=== PATIENT | male | born 1960 | race Caucasian/White ===

== ENCOUNTER → 2018-04-01 | Outpatient (CLI) | payer MEDICARE ==
[~2018-04-01] MED LIST: DULO60CA7 PO; FLOMAX; METO25TA35 PO; NORVAS; NORVASC; OXYC-307 PO; POTA10TA PO; TAMS-11 PO; VALS160T3 PO
== END | disposition home or self-care (01) ==
LOC: CFH 08:01
PROVIDERS: ATTEND Urology
DX: N20.9 Urinary calculus, unspecified (principal); N20.0 Calculus of kidney
CPT/HCPCS: 74176

== ENCOUNTER 2018-04-09 12:34 | Day surgery (SDC) | payer MEDICARE ==
[~2018-04-09] VITALS: Ht 170.2 cm; Wt 88.2 kg
[2018-04-09] MEDS ORDERED: LACTATED RINGERS 1,000 ML IV SCH (13:29)
[2018-04-09 13:53] VITALS: BP 137/80
[2018-04-09] MEDS ORDERED: AMLO10TA4 PO (13:58)
[2018-04-09] MEDS ORDERED: PROPOFOL 50 ML ONE (14:48)
[2018-04-09] MEDS ORDERED: MIDAZOLAM 1 MG/ML, 2ML ONE (14:48)
[2018-04-09] MEDS ORDERED: FENTANYL PF 250 MCG/5ML ONE (14:48)
[2018-04-09] MEDS ORDERED: ONDANSETRON 2MG/ML, 2ML ONE (15:06)
[2018-04-09] MEDS ORDERED: DEXAMETHASONE 4 MG/ML, 1ML ONE (15:06)
[2018-04-09] MEDS ORDERED: KETOROLAC 30 MG/1 ML ONE (15:06)
[2018-04-09] MEDS ORDERED: GLYCOPYRROLATE 0.2MG/1ML, 5ML ONE (15:06)
[2018-04-09] MEDS ORDERED: ROCURONIUM 10 MG/ML,10ML ONE (15:06)
[2018-04-09] MEDS ORDERED: SUCCINYLCHOLINE 20 MG/ML, 10ML ONE (15:06)
[2018-04-09] MEDS ORDERED: CIPROFLOXACIN/PMX 400MG/200ML 200 ML ONE (15:25)
[2018-04-09] MEDS ORDERED: PROMETHAZINE 25 MG SUPP PR PRN (16:00)
[2018-04-09] MEDS ORDERED: PROMETHAZINE 12.5 MG SUPP PR PRN (16:00)
[2018-04-09] MEDS ORDERED: PROMETHAZINE 25 MG/ML, 1ML IV PRN (16:00)
[2018-04-09] MEDS ORDERED: PROCHLORPERAZINE 5 MG/ML, 2ML IV PRN (16:00)
[2018-04-09] MEDS ORDERED: DIPHENHYDRAMINE 50 MG/ML, 1ML IVPush PRN (16:00)
[2018-04-09] MEDS ORDERED: LABETALOL 5MG/ML, 20ML IV PRN (16:00)
[2018-04-09] MEDS ORDERED: MORPHINE SULFATE 4 MG/ML, 1ML IVPush PRN (16:00)
[2018-04-09] MEDS ORDERED: ONDANSETRON 2MG/ML, 2ML IV PRN (16:00)
[2018-04-09] MEDS ORDERED: MIDAZOLAM 1 MG/ML, 2ML IV PRN (16:00)
[2018-04-09] MEDS ORDERED: OXYcodone 5 MG/5 ML ORAL.SOL UDC PO PRN (16:00)
[2018-04-09] MEDS ORDERED: FENTANYL PF 100 MCG/2ML IV PRN (16:00)
[2018-04-09] MEDS ORDERED: ONDANSETRON ODT 8 MG PO PRN (16:00)
[2018-04-09] MEDS ORDERED: EPHEDRINE 50 MG/ML, 1ML IM PRN (16:00)
[2018-04-09] MEDS ORDERED: MEPERIDINE/PF 25MG/0.5ML IVPush PRN (16:00)
[2018-04-09] MEDS ORDERED: ACETAMINOPHEN 325 MG TABLET PO PRN (16:00)
[2018-04-09] MEDS ORDERED: EPHEDRINE 50 MG/ML, 1ML IVPush PRN (16:00)
[2018-04-09] MEDS ORDERED: ACETAMINOPHEN 650 MG/20.3 ML UDC ONE (17:28)
[2018-04-09] MEDS ORDERED: OXYcodone 5 MG/5 ML ORAL.SOL UDC ONE (17:28)
[2018-04-09] MEDS ORDERED: OMNIPAQUE 350 MG/ML, 50 ML BOTTLE ONE (17:34)
[2018-04-09] MEDS ORDERED: OXYcodone/APAP 10/325MG TABLET PO PRN (18:30)
[2018-04-09] MEDS ORDERED: LIDOCAINE JELLY 2%, 30GM TP ONE (23:00)
[2018-04-10] MEDS ORDERED: AMLODIPINE 5 MG TABLET PO SCH (09:00)
[2018-04-10] MEDS ORDERED: DULOXETINE 30 MG CAPSULE.DR PO SCH (09:00)
[2018-04-10] MEDS ORDERED: POTASSIUM CHLORIDE 20 MEQ TAB.ER.PRT PO SCH (09:00)
[2018-04-10] MEDS ORDERED: TAMSULOSIN 0.4 MG CAP.ER.24H PO SCH (09:00)
== END 2018-04-09 23:40 | disposition home or self-care (01) ==
LOC: OUT 12:34 → 4NOR 15:58 → OUT 23:40
PROVIDERS: ATTEND Urology
DX: N20.0 Calculus of kidney (principal); I10 Essential (primary) hypertension; F32.9 Major depressive disorder, single episode, unspecified; Z87.891 Personal history of nicotine dependence; Z79.899 Other long term (current) drug therapy; Z98.890 Other specified postprocedural states; Z91.030 Bee allergy status
CPT/HCPCS: 52353; 74420; 82360; 88300; C1758; C1769; J0330; J0744; J1100; J1885; J2250; J2405; J2704; J3010; J3490; J7120; Q9967; G0378

== ENCOUNTER → 2018-08-07 | Outpatient (CLI) | payer MEDICARE ==
[~2018-08-07] MED LIST changes: +AMLO10TA4 PO
== END | disposition home or self-care (01) ==
LOC: CFH 14:40
PROVIDERS: ATTEND Urology
DX: N13.30 Unspecified hydronephrosis (principal); N20.0 Calculus of kidney; N39.0 Urinary tract infection, site not specified
CPT/HCPCS: 74018; 76770

== ENCOUNTER 2018-11-04 07:35 | Day surgery (SDC) | payer MEDICARE ==
[~2018-11-04] VITALS: Ht 170.2 cm; Wt 90.7 kg
[2018-11-04] MEDS ORDERED: LACTATED RINGERS 1,000 ML IV SCH (08:26)
[2018-11-04 08:29] VITALS: BP 157/82
[2018-11-04] MEDS ORDERED: POTASSIUM CITRATE PO (08:38)
[2018-11-04] MEDS ORDERED: FENTANYL PF 100 MCG/2ML ONE ×3 (09:05→12:33)
[2018-11-04] MEDS ORDERED: MIDAZOLAM 1 MG/ML, 2ML ONE (09:05)
[2018-11-04] MEDS ORDERED: hydrALAzine 20 MG/ML, 1ML IV PRN (09:30)
[2018-11-04] MEDS ORDERED: PROMETHAZINE 25 MG/ML, 1ML IV PRN (09:30)
[2018-11-04] MEDS ORDERED: ONDANSETRON 2MG/ML, 2ML IV PRN (09:30)
[2018-11-04] MEDS ORDERED: ACETAMINOPHEN 325 MG TABLET PO PRN (09:30)
[2018-11-04] MEDS ORDERED: OXYcodone 5 MG/5 ML ORAL.SOL UDC PO PRN (09:30)
[2018-11-04] MEDS ORDERED: HYDROmorphone 2 MG/ML, 1ML IVPush PRN (09:30)
[2018-11-04] MEDS ORDERED: POTASSIUM CHLORIDE 20 MEQ in SODIUM CHLORIDE 0.9% 250 ML IV ONE (09:30)
[2018-11-04] MEDS ORDERED: ONDANSETRON ODT 8 MG PO PRN (09:30)
[2018-11-04] MEDS ORDERED: LABETALOL 5MG/ML, 20ML IV PRN (09:30)
[2018-11-04] MEDS ORDERED: ONDANSETRON 2MG/ML, 2ML ONE (10:57)
[2018-11-04] MEDS ORDERED: PROPOFOL 10 MG/ML, 20ML ONE (10:57)
[2018-11-04] MEDS ORDERED: DEXAMETHASONE 4 MG/ML, 1ML ONE (10:57)
[2018-11-04] MEDS ORDERED: CEFAZOLIN 1,000 MG ONE (10:57)
[2018-11-04] MEDS ORDERED: CIPROFLOXACIN/PMX 400MG/200ML 200 ML ONE ×2 (11:11→11:14)
[2018-11-04] MEDS ORDERED: EPHEDRINE 50 MG/ML, 1ML ONE (11:19)
[2018-11-04] MEDS ORDERED: OXYcodone 5 MG/5 ML ORAL.SOL UDC ONE (12:33)
[2018-11-04] MEDS: FENTANYL PF 100 MCG/2ML IV PRN ×2 (12:39→12:47)
== END 2018-11-04 14:25 | disposition home or self-care (01) ==
LOC: OUT 07:35
PROVIDERS: ATTEND Urology
DX: N20.1 Calculus of ureter (principal); F32.9 Major depressive disorder, single episode, unspecified; I10 Essential (primary) hypertension; Z87.440 Personal history of urinary (tract) infections; Z87.891 Personal history of nicotine dependence; Z91.030 Bee allergy status; Z98.890 Other specified postprocedural states
CPT/HCPCS: 52356; 82360; 88300; 93005; C1758; C1769; C2617; J0690; J0744; J1100; J2250; J2405; J2704; J3010; J7120

== ENCOUNTER 2019-09-08 13:55 | Outpatient (CLI) | payer MEDICARE ==
[~2019-09-08 13:55] MED LIST changes: +POTASSIUM CITRATE PO
[2019-09-08] MEDS ORDERED: OMNIPAQUE 350 MG/ML, 150 ML BOTTLE ONE (14:40)
== END 2019-09-08 23:59 | disposition home or self-care (01) ==
LOC: CFH 13:55
PROVIDERS: ATTEND Physician Assistant
DX: N20.0 Calculus of kidney (principal); N13.30 Unspecified hydronephrosis; M51.37 Other intervertebral disc degeneration, lumbosacral region
CPT/HCPCS: 74178; Q9967